=== PATIENT | male | born 1985 | race Caucasian/White ===

== ENCOUNTER 2016-07-25 20:05 | Emergency (ER) | payer BC ==
[~2016-07-25] VITALS: Ht 177.8 cm; Wt 81.0 kg
[2016-07-25] MEDS ORDERED: DIAZEPAM 5 MG TABLET PO ONE (22:15)
[2016-07-25 22:35] VITALS: BP 149/85
== END 2016-07-26 03:28 | disposition home or self-care (01) ==
LOC: ER 20:07
DX: S13.9XXA Sprain of joints and ligaments of unspecified parts of neck, initial encounter (principal); R51 Headache; V49.59XA Passenger injured in collision with other motor vehicles in traffic accident, initial encounter; W22.19XA Striking against or struck by other automobile airbag, initial encounter; Y93.89 Activity, other specified; Y92.414 Local residential or business street as the place of occurrence of the external cause
CPT/HCPCS: 99283; L0172